=== PATIENT | female | born 1965 | race African-American/Black ===

== ENCOUNTER 2018-09-19 12:57 | Emergency (ER) | payer OTHER ==
[2018-09-19] MEDS ORDERED: HYDROCODONE/APAP 5/325 MG TAB ONE (13:45)
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
--- NOTE | 2018-09-19 14:47 | EDPHYS ---
Physician Documentation [facility] Name: Keena Davis Age: 53 yrs Sex: Female : 1965 Arrival Date: 09/19/2018 Time: 13:02 Bed 23 Private MD: ED Physician Westley Wasserman HPI: 09/19 14:42 This 53 yrs old Black Female presents to ER via Ambulatory with complaints of Shoulder gs Pain. 14:42 The patient or guardian complains of pain, that is acute. left shoulder. Onset: The gs symptoms/episode began/occurred 2 day(s) ago, and became worse and became persistent. Modifying factors: The symptoms are aggravated by lifting weight, movement, rotation of arm. Associated signs and symptoms: Pertinent negatives: chest pain, diaphoresis, dyspnea. Severity of symptoms: At their worst the symptoms were moderate, in the emergency department the symptoms are unchanged. 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 - Social history:: Smoking status: Patient/guardian denies using tobacco. - Ebola Screening: : No symptoms or risks identified at this time. ROS: 14:42 All other systems are negative. gs Exam: 14:42 Head/Face: Normocephalic, atraumatic. Eyes: Pupils equal round and reactive to light, gs extra-ocular motions intact. Lids and lashes normal. Conjunctiva and sclera are non-icteric and not injected. Cornea within normal limits. Periorbital areas with no swelling, redness, or edema. ENT: Nares patent. No nasal discharge, no septal abnormalities noted. Tympanic membranes are normal and external auditory canals are clear. Oropharynx with no redness, swelling, or masses, exudates, or evidence of obstruction, uvula midline. Mucous membranes moist. Cardiovascular: Regular rate and rhythm with a normal S1 and S2. No gallops, murmurs, or rubs. Normal PMI, no JVD. No pulse deficits. Respiratory: Lungs have equal breath sounds bilaterally, clear to auscultation and percussion. No rales, rhonchi or wheezes noted. No increased work of breathing, no retractions or nasal flaring. Abdomen/GI: Soft, non-tender, with normal bowel sounds. No distension or tympany. No guarding or rebound. No evidence of tenderness throughout. Back: No spinal tenderness. No costovertebral tenderness. Full range of motion. Skin: Warm, dry with normal turgor. Normal color with no rashes, no lesions, and no evidence of cellulitis. Neuro: Awake and alert, GCS 15, oriented to person, place, time, and situation. Cranial nerves II-XII grossly intact. Motor strength 5/5 in all extremities. Sensory grossly intact. Cerebellar exam normal. Normal gait. 14:42 Constitutional: The patient appears alert, awake. 14:42 Musculoskeletal/extremity: Extremities: noted in the anterior aspect of left shoulder: decreased ROM, pain, There is no evidence of deformity, swelling, ROM: limited active range of motion, limited passive range of motion, limited active range of motion due to pain, limited passive range of motion due to pain, Pulses: are normal with no appreciated deficits, Sensation intact. Vital Signs: 13:17 BP 136 / 73; Pulse 61; Resp 16 S; Temp 98.1(TE); Pulse Ox 100% on R/A; Weight 104.33 kg aa5 (R); Height 5 ft. 3 in. (160.02 cm) (R); Pain 8/10; 13:17 Body Mass Index 40.74 (104.33 kg, 160.02 cm) aa5 MDM: 13:31 Patient medically screened. 14:42 Differential diagnosis: Anterior dislocation with fracture, Anterior dislocation gs without fracture, humeral head fracture, DJD, tendonitis. Data reviewed: vital signs, nurses notes. Counseling: I had a detailed discussion with the patient and/or guardian regarding: the historical points, exam findings, and any diagnostic results supporting the discharge/admit diagnosis, the presence of at least one elevated blood pressure reading (>120/80) during this emergency department visit, radiology results, the need for outpatient follow up. Response to treatment: the patient's symptoms have mildly improved after treatment, and as a result, I will discharge patient. Special discussion: I have referred the patient to see his PCP for further evaluation of high blood pressure. 09/19 13:32 Order name: Shoulder Left (2 View) XRAY; Complete Time: 14:21 09/19 15:01 Order name: Gt; Complete Time: 15:14 mg2 Administered Medications: 13:40 Drug: Stanton 5 mg-325 mg 1 tabs Route: PO; aj 14:22 Follow up: Response: No adverse reaction; Pain is decreased aj Disposition: 09/19/18 14:46 Discharged to Home. Impression: Impingement syndrome of left shoulder. - Condition is Stable. - Discharge Instructions: Rotator Cuff Tendinitis. - Prescriptions for Tylenol- Codeine #4 300-60 mg Oral Tablet - take 1 tablet by ORAL route every 6 hours As needed; 12 tablet. - Medication Reconciliation Form, Thank You Letter, Antibiotic Education, Prescription Opioid Use, Work release form form. - Follow up: Johnnie Eisenberg MD; When: 2 - 3 days; Reason: Re-evaluation by your physician. Signatures: Dispatcher [employer] EDShila Avelar RN RN aj Ana Yusuf RN RN aa5 Westley Wasserman MD MD Bo Tao RN RN mg2 Corrections: (The following items were deleted from the chart) 15:25 14:46 09/19/2018 14:46 Discharged to Home. Impression: Impingement syndrome of left mg2 shoulder. Condition is Stable. Forms are Medication Reconciliation Form, Thank You Letter, Antibiotic Education, Prescription Opioid Use. Follow up: Johnnie Eisenberg; When: 2 - 3 days; Reason: Re-evaluation by your physician.
== END 2018-09-19 15:25 | disposition home or self-care (01) ==
LOC: ER 12:57
DX: M75.42 Impingement syndrome of left shoulder (principal)
CPT/HCPCS: 99284